=== PATIENT | male | born 1945 | race Caucasian/White ===

== ENCOUNTER 2018-07-26 14:44 | Inpatient (IN) | payer MEDICARE, OTHER ==
[~2018-07-26] VITALS: Ht 177.8 cm; Wt 93.4 kg
[2018-07-26 15:35] LABS: BASOPHILS # (AUTO) 0.02 x10^3/uL (0-0.1); BASOPHILS % (AUTO) 0 % (0-1); EOSINOPHILS # (AUTO) 0.03 x10^3/uL (0-0.4); EOSINOPHILS % (AUTO) 0 % (1-7); LYMPHOCYTES # (AUTO) 2.84 x10^3/uL (1-3.4); LYMPHOCYTES % (AUTO) 27 % (22-44); MD NO; MEAN CORPUSCULAR HEMOGLOBIN 29.8 pg (27.5-34.5); MEAN CORPUSCULAR HGB CONC 32.6 g/dL (33.2-36.2); MEAN CORPUSCULAR VOLUME 91.3 fL (81-97); MEAN PLATELET VOLUME 9.2 fL (7.4-10.4); MONOCYTES # (AUTO) 0.93 x10^3/uL (0.2-0.8); MONOCYTES % (AUTO) 9 % (2-9); NEUTROPHILS # (AUTO) 6.83 x10^3/uL (1.8-6.8); NEUTROPHILS % (AUTO) 64 % (42-75); PLATELET COUNT 369 x10^3/uL (130-400); RED CELL DISTRIBUTION WIDTH 15.5 % (9.4-14.8)
[2018-07-26 15:41] LABS: MICROSCOPIC NOT IND
[2018-07-26 15:44] LABS: CULTURE INDICATED? NO
[2018-07-26 15:46] LABS: ALANINE AMINOTRANSFERASE 41 U/L (12-78); ALBUMIN 4.1 g/dL (3.4-5.0); ANION GAP 10 mmol/L (5-15); CALCIUM 8.6 mg/dL (8.5-10.1); CHLORIDE 105 mmol/L (98-107); CREATININE 1.03 mg/dL (0.7-1.3)
[2018-07-26 15:51] LABS: ALKALINE PHOSPHATASE 61 U/L (45-117); BILIRUBIN,TOTAL 0.5 mg/dL (0.2-1.0); TOTAL PROTEIN 7.9 g/dL (6.4-8.2); TROPONIN I < 0.015 ng/mL (0.000-0.045)
[2018-07-26] MEDS ORDERED: METF500T17 PO (19:04)
[2018-07-26] MEDS ORDERED: SIMV10TA3 PO (19:04)
[2018-07-26] MEDS ORDERED: ZOLP10TA5 PO (19:04)
[2018-07-26] MEDS ORDERED: RANI150T4 PO (19:04)
[2018-07-26] MEDS ORDERED: DULO30CA2 PO (19:04)
[2018-07-26] MEDS ORDERED: CHOL2000 PO (19:04)
[2018-07-26] MEDS ORDERED: PREG200C PO ×2 (19:04)
[2018-07-26] MEDS ORDERED: HYDR-3653 PO (19:04)
[2018-07-26] MEDS ORDERED: TRAZ50TA66 PO (19:04)
[2018-07-26] MEDS ORDERED: TIZA4CAP PO (19:04)
[2018-07-26] MEDS ORDERED: LATA2.5D3 EACHEYE (19:04)
[2018-07-26] MEDS ORDERED: ONDANSETRON ODT 4 MG PO PRN (20:30)
[2018-07-26] MEDS ORDERED: POLYETHYLENE GLYCOL 17 GM PACKET PO PRN (20:30)
[2018-07-26] MEDS ORDERED: BISACODYL 10 MG SUPP PR PRN (20:30)
[2018-07-26] MEDS ORDERED: LIDOCAINE-MPF 1%, 5ML ONE ×3 (20:30→21:56)
[2018-07-26] MEDS: LATANOPROST OPHTH 0.005%, 2.5ML EACHEYE SCH (21:00)
[2018-07-26 21:10] VITALS: BP 138/77
[2018-07-26 21:16] LABS: FOLATE LEVEL > 20.0 ng/mL (3.1-17.5)
[2018-07-26] MEDS: PLEASE ENTER WEIGHT MC SCH (21:30)
[2018-07-26] MEDS: SODIUM CHLORIDE 0.9% 1,000 ML IV SCH (22:41)
[2018-07-26] MEDS: FAMOTIDINE 20 MG TABLET PO SCH (22:41)
[2018-07-26] MEDS: SIMVASTATIN 10 MG TABLET PO SCH (22:41)
[2018-07-27 02:46] VITALS: BP 153/66
[2018-07-27] MEDS: PLEASE ENTER WEIGHT MC SCH (05:30)
[2018-07-27 05:57] LABS: BASOPHILS # (AUTO) 0.03 x10^3/uL (0-0.1); BASOPHILS % (AUTO) 0 % (0-1); EOSINOPHILS # (AUTO) 0.08 x10^3/uL (0-0.4); EOSINOPHILS % (AUTO) 1 % (1-7); LYMPHOCYTES # (AUTO) 2.47 x10^3/uL (1-3.4); LYMPHOCYTES % (AUTO) 26 % (22-44); MD NO; MEAN CORPUSCULAR HEMOGLOBIN 30.5 pg (27.5-34.5); MEAN CORPUSCULAR HGB CONC 33.4 g/dL (33.2-36.2); MEAN CORPUSCULAR VOLUME 91.4 fL (81-97); MEAN PLATELET VOLUME 9.4 fL (7.4-10.4); MONOCYTES # (AUTO) 0.95 x10^3/uL (0.2-0.8); MONOCYTES % (AUTO) 10 % (2-9); NEUTROPHILS # (AUTO) 6.11 x10^3/uL (1.8-6.8); NEUTROPHILS % (AUTO) 63 % (42-75); PLATELET COUNT 319 x10^3/uL (130-400); RED BLOOD COUNT 4.92 x10^6/uL (4.38-5.82); RED CELL DISTRIBUTION WIDTH 15.3 % (9.4-14.8)
[2018-07-27 06:11] LABS: ALBUMIN 3.7 g/dL (3.4-5.0); ANION GAP 10 mmol/L (5-15); CALCIUM 8.8 mg/dL (8.5-10.1); CHLORIDE 107 mmol/L (98-107)
[2018-07-27] MEDS: ASPIRIN 81 MG TABLET EC PO SCH (06:18)
[2018-07-27 06:19] LABS: ALANINE AMINOTRANSFERASE 36 U/L (12-78); ALKALINE PHOSPHATASE 51 U/L (45-117); BILIRUBIN,TOTAL 0.5 mg/dL (0.2-1.0); CREATININE 0.94 mg/dL (0.7-1.3); TOTAL PROTEIN 7.1 g/dL (6.4-8.2)
[2018-07-27 07:25] VITALS: BP 126/65
[2018-07-27] MEDS: CHOLECALCIFEROL 1,000 UNIT TABLET PO SCH (08:12)
[2018-07-27] MEDS: SODIUM CHLORIDE 0.9% 1,000 ML IV SCH (08:12)
[2018-07-27] MEDS: metFORMIN 500 MG TABLET PO SCH (08:12)
[2018-07-27] MEDS: FAMOTIDINE 20 MG TABLET PO SCH ×2 (08:12→20:08)
[2018-07-27] MEDS: SENNA/DOCUSATE TABLET PO SCH (08:12)
[2018-07-27] MEDS: DULOXETINE 30 MG CAPSULE.DR PO SCH (08:12)
[2018-07-27] MEDS ORDERED: LIDOCAINE-MPF 1%, 5ML ONE (13:24)
[2018-07-27] MEDS: ACETAMINOPHEN 325 MG TABLET PO PRN ×2 (14:15→20:09)
[2018-07-27 15:09] VITALS: BP 175/78
[2018-07-27 16:34] LABS: GLUCOSE, CSF 70 mg/dL (40-80); TOTAL PROTEIN,CSF 38 mg/dL (15-45)
[2018-07-27] MEDS: SIMVASTATIN 10 MG TABLET PO SCH (20:08)
[2018-07-27 20:17] VITALS: BP 155/79
[2018-07-27] MEDS: LATANOPROST OPHTH 0.005%, 2.5ML EACHEYE SCH (22:05)
[2018-07-28 02:30] VITALS: BP 161/81
[2018-07-28] MEDS: ACETAMINOPHEN 325 MG TABLET PO PRN (06:01)
[2018-07-28] MEDS: ASPIRIN 81 MG TABLET EC PO SCH (06:01)
[2018-07-28 08:15] VITALS: BP 166/94
[2018-07-28] MEDS: metFORMIN 500 MG TABLET PO SCH (08:43)
[2018-07-28] MEDS: CHOLECALCIFEROL 1,000 UNIT TABLET PO SCH (08:43)
[2018-07-28] MEDS: DULOXETINE 30 MG CAPSULE.DR PO SCH (08:43)
[2018-07-28] MEDS: FAMOTIDINE 20 MG TABLET PO SCH (08:43)
[2018-07-28] MEDS: SENNA/DOCUSATE TABLET PO SCH (09:00)
== END 2018-07-28 11:50 | disposition home or self-care (01) | DRG 93 ==
LOC: ED 16:08 → EDIP 19:52 → 4EST 21:07 → DCLOUNGE 07-28 11:45
PROVIDERS: ADMIT Internal Medicine; ATTEND Internal Medicine
PROC: 009U3ZX Drainage of Spinal Canal, Percutaneous Approach, Diagnostic (ICD-10-PCS; principal; 2018-07-27)
PROC: B01B1ZZ Fluoroscopy of Spinal Cord using Low Osmolar Contrast (ICD-10-PCS; 2018-07-27)
DX: G92 Toxic encephalopathy (principal); E11.9 Type 2 diabetes mellitus without complications; E78.5 Hyperlipidemia, unspecified; F32.9 Major depressive disorder, single episode, unspecified; G47.00 Insomnia, unspecified; H40.9 Unspecified glaucoma; K21.9 Gastro-esophageal reflux disease without esophagitis; D72.829 Elevated white blood cell count, unspecified; M43.6 Torticollis; Z66 Do not resuscitate; T50.905A Adverse effect of unspecified drugs, medicaments and biological substances, initial encounter; Y92.89 Other specified places as the place of occurrence of the external cause; Z79.899 Other long term (current) drug therapy
CPT/HCPCS: 36415; 62270; 70551; 80053; 81003; 82140; 82306; 82607; 82746; 82945; 83605; 83735; 84157; 84443; 84484; 85025; 87040; 87070; 87075; 87116; 87205; 87206; 87496; 87529; 87798; 89051; 93005; 99285; G0378; J7030